=== PATIENT | male | born 1965 | race Caucasian/White ===

== ENCOUNTER 2016-08-07 22:02 | Emergency (ER) | payer OTHER ==
[2016-08-07 22:24] VITALS: RESP 18
[2016-08-07] MEDS ORDERED: SODIUM CHLORIDE 0.9% 1,000 ML IV STA ×2 (22:26→22:55)
--- NOTE | 2016-08-07 22:34 | ED ---
General Adult HPI - General Chief complaint: Syncope Stated complaint: Syncope Time Seen by Provider: 08/07/16 22:25 Source: patient, RN notes reviewed, old records reviewed Mode of arrival: ambulatory Limitations: no limitations - Related Data Home Medications Medication Instructions Recorded Confirmed Ibuprofen [Motrin] 200 - 400 mg PO Q6HR PRN 08/07/16 08/07/16 Allergies Allergy/AdvReac Type Severity Reaction Status Date / Time No Known Allergies Allergy Verified 08/07/16 22:41 Review of Systems ROS Statement: Those systems with pertinent positive or pertinent negative responses have been documented in the HPI. ROS Other: All systems not noted in ROS Statement are negative. Past Medical History Past Medical History: No Reported History History of Any Multi-Drug Resistant Organisms: None Reported Past Surgical History: Cholecystectomy Additional Past Surgical History / Comment(s): pilonital cyst Past Psychological History: No Psychological Hx Reported Smoking Status: Current every day smoker Past Alcohol Use History: Daily Past Drug Use History: None Reported General Exam Limitations: no limitations Course Vital Signs 08/07/16 08/07/16 22:17 23:43 Temperature 98.6 F Pulse Rate 95 78 Respiratory 18 18 Rate Blood Pressure 156/73 128/59 O2 Sat by Pulse 95 95 Oximetry - Reevaluation(s) Reevaluation #1: 08/08/16 00:43 Patient's without seizure-like activity or syncopal episode here in the emergency room, patient states he feels fine EKG Findings - EKG Comments: EKG Findings:: EKG shows normal sinus a rate of 90, OH 146, [id number], QTC 435 Medical Decision Making - Medical Decision Making 49 middle ear with no specific medical history coming in for evaluation of syncopal versus seizure like activity. Patient is without event in emergency room, feels fine. Mild elevated alcohol, does admit to being daily drinker. CT is negative. Patient will be discharged home - Lab Data Result diagrams: 08/07/16 23:04 08/07/16 23:04 Lab Results 08/07/16 08/07/16 08/07/16 Range/Units 23:04 23:04 23:04 WBC 8.3 (3.8-10.6) k/uL RBC 4.79 (4.30-5.90) m/uL Hgb 14.7 (13.0-17.5) gm/dL Hct 43.7 (39.0-53.0) % MCV 91.3 (80.0-100.0) fL MCH 30.7 (25.0-35.0) pg MCHC 33.6 (31.0-37.0) g/dL RDW 13.2 (11.5-15.5) % Plt Count 199 (150-450) k/uL Neutrophils % 56 % Lymphocytes % 29 % Monocytes % 7 % Eosinophils % 4 % Basophils % 1 % Neutrophils # 4.6 (1.3-7.7) k/uL Lymphocytes # 2.4 (1.0-4.8) k/uL Monocytes # 0.5 (0-1.0) k/uL Eosinophils # 0.3 (0-0.7) k/uL Basophils # 0.1 (0-0.2) k/uL PT (9.0-12.0) sec INR (<1.1) APTT (22.0-30.0) sec D-Dimer (<0.60) mg/L FEU Sodium 144 (137-145) mmol/L Potassium 3.5 (3.5-5.1) mmol/L Chloride 105 (98-107) mmol/L Carbon Dioxide 26 (22-30) mmol/L Anion Gap 13 mmol/L BUN 15 (9-20) mg/dL Creatinine 0.70 (0.66-1.25) mg/dL Est GFR (MDRD) Af Amer >60 (>60 ml/min/1.73 sqM) Est GFR (MDRD) Non-Af >60 (>60 ml/min/1.73 sqM) Glucose 81 (74-99) mg/dL Calcium 9.7 (8.4-10.2) mg/dL Phosphorus 3.3 (2.5-4.5) mg/dL Magnesium 1.7 (1.6-2.3) mg/dL Total Bilirubin 0.5 (0.2-1.3) mg/dL AST 52 (17-59) U/L ALT 70 (21-72) U/L Alkaline Phosphatase 74 (38-126) U/L Total Creatine Kinase 304 H (55-170) U/L CK-MB (CK-2) 3.1 H* (0.0-2.4) ng/mL CK-MB (CK-2) Rel Index 1.0 Troponin I <0.012 (0.000-0.034) ng/mL Total Protein 6.9 (6.3-8.2) g/dL Albumin 4.1 (3.5-5.0) g/dL Lipase 88 (23-300) U/L Salicylates <1.0 mg/dL Urine Opiates Screen (NotDetected) Ur Oxycodone Screen (NotDetected) Urine Methadone Screen (NotDetected) Ur Propoxyphene Screen (NotDetected) Acetaminophen <10.0 ug/mL Ur Barbiturates Screen (NotDetected) U Tricyclic Antidepress (NotDetected) Ur Phencyclidine Scrn (NotDetected) Ur Amphetamines Screen (NotDetected) U Methamphetamines Scrn (NotDetected) U Benzodiazepines Scrn (NotDetected) Urine Cocaine Screen (NotDetected) U Marijuana (THC) Screen (NotDetected) Serum Alcohol 16 mg/dL 08/07/16 08/07/16 Range/Units 23:04 23:15 WBC (3.8-10.6) k/uL RBC (4.30-5.90) m/uL Hgb (13.0-17.5) gm/dL Hct (39.0-53.0) % MCV (80.0-100.0) fL MCH (25.0-35.0) pg MCHC (31.0-37.0) g/dL RDW (11.5-15.5) % Plt Count (150-450) k/uL Neutrophils % % Lymphocytes % % Monocytes % % Eosinophils % % Basophils % % Neutrophils # (1.3-7.7) k/uL Lymphocytes # (1.0-4.8) k/uL Monocytes # (0-1.0) k/uL Eosinophils # (0-0.7) k/uL Basophils # (0-0.2) k/uL PT 10.0 (9.0-12.0) sec INR 1.0 (<1.1) APTT 23.2 (22.0-30.0) sec D-Dimer 0.20 (<0.60) mg/L FEU Sodium (137-145) mmol/L Potassium (3.5-5.1) mmol/L Chloride (98-107) mmol/L Carbon Dioxide (22-30) mmol/L Anion Gap mmol/L BUN (9-20) mg/dL Creatinine (0.66-1.25) mg/dL Est GFR (MDRD) Af Amer (>60 ml/min/1.73 sqM) Est GFR (MDRD) Non-Af (>60 ml/min/1.73 sqM) Glucose (74-99) mg/dL Calcium (8.4-10.2) mg/dL Phosphorus (2.5-4.5) mg/dL Magnesium (1.6-2.3) mg/dL Total Bilirubin (0.2-1.3) mg/dL AST (17-59) U/L ALT (21-72) U/L Alkaline Phosphatase (38-126) U/L Total Creatine Kinase (55-170) U/L CK-MB (CK-2) (0.0-2.4) ng/mL CK-MB (CK-2) Rel Index Troponin I (0.000-0.034) ng/mL Total Protein (6.3-8.2) g/dL Albumin (3.5-5.0) g/dL Lipase (23-300) U/L Salicylates mg/dL Urine Opiates Screen Not Detected (NotDetected) Ur Oxycodone Screen Not Detected (NotDetected) Urine Methadone Screen Not Detected (NotDetected) Ur Propoxyphene Screen Not Detected (NotDetected) Acetaminophen ug/mL Ur Barbiturates Screen Not Detected (NotDetected) U Tricyclic Antidepress Not Detected (NotDetected) Ur Phencyclidine Scrn Not Detected (NotDetected) Ur Amphetamines Screen Not Detected (NotDetected) U Methamphetamines Scrn Not Detected (NotDetected) U Benzodiazepines Scrn Not Detected (NotDetected) Urine Cocaine Screen Not Detected (NotDetected) U Marijuana (THC) Screen Not Detected (NotDetected) Serum Alcohol mg/dL - Radiology Data Radiology results: report reviewed (CT brain CT angios had neck is negative for acute disease), image reviewed Disposition Clinical Impression: Vasovagal syncope, Dehydration, Alcohol intoxication, New onset seizure Disposition: HOME SELF-CARE Condition: Good Instructions: Syncope (ED), New-Onset Seizure in Adults (ED) Referrals: None,Stated [Primary Care Provider] - 1-2 days
[2016-08-07] MEDS ORDERED: RX INFO: IV CONTRAST WAS GIVEN 1 EACH MISC MISCELLANE PRN (22:55)
[2016-08-07 23:17] LABS: Basophils # (A) 0.1 k/uL (0-0.2); Basophils % (A) 1 %; CH 31.2; CHCM 34.4; Eosinophils # (A) 0.3 k/uL (0-0.7); Eosinophils % (A) 4 %; HCT 43.7 % (39.0-53.0); HGB 14.7 gm/dL (13.0-17.5); Luc # (Auto) 0.27; Luc % (Auto) 3; Lymphocytes # (A) 2.4 k/uL (1.0-4.8); Lymphocytes % (A) 29 %; MCH 30.7 pg (25.0-35.0); MCHC 33.6 g/dL (31.0-37.0); MCV 91.3 fL (80.0-100.0); Mean Platelet Volume 7.2; Monocytes # (A) 0.5 k/uL (0-1.0); Monocytes % (A) 7 %; Neutrophils # (A) 4.6 k/uL (1.3-7.7); Neutrophils % (A) 56 %; RBC 4.79 m/uL (4.30-5.90); RDW 13.2 % (11.5-15.5); WBC 8.3 k/uL (3.8-10.6); WBC (Perox) 7.88
[2016-08-07 23:33] LABS: Glucose 81 mg/dL (74-99)
[2016-08-07 23:34] LABS: Partial Thromboplastin Time 23.2 sec (22.0-30.0)
[2016-08-07 23:35] LABS: ALT 70 U/L (21-72); AST 52 U/L (17-59); Acetaminophen <10.0 ug/mL; Alcohol 16 mg/dL; Alkaline Phosphatase 74 U/L (38-126); Anion Gap 13 mmol/L; Blood Urea Nitrogen 15 mg/dL (9-20); Calcium 9.7 mg/dL (8.4-10.2); Carbon Dioxide 26 mmol/L (22-30); Chloride 105 mmol/L (98-107); Magnesium 1.7 mg/dL (1.6-2.3); Non-African American GFR(MDRD) >60 (>60 ml/min/1.73 sqM); Phosphorous 3.3 mg/dL (2.5-4.5); Potassium 3.5 mmol/L (3.5-5.1); Salicylate <1.0 mg/dL; Sodium 144 mmol/L (137-145); Total Bilirubin 0.5 mg/dL (0.2-1.3); Total Protein 6.9 g/dL (6.3-8.2)
[2016-08-07 23:36] LABS: Creatine Kinase 304 U/L (55-170)
[2016-08-07 23:49] LABS: Troponin I <0.012 ng/mL (0.000-0.034)
--- NOTE | 2016-08-07 23:51 | CT ---
EXAMINATION TYPE: CT brain wo con DATE OF EXAM: 08/07/2016 11:45 PM COMPARISON: NONE HISTORY: No prior, near syncope, pt states he had an episode of "feeling funny" where sounds were muf fled CT DLP: DLP:head-1133.30 body-404.60 mGycm Automated exposure control for dose reduction was used. FINDINGS: Ventricles and sulci appear normal. There is no mass effect nor midline shift. There is no sign of in tracranial hemorrhage. I see no cerebral edema. There is moderate mucosal thickening in the ethmoid a nd left maxillary sinus. Calvarium is intact. IMPRESSION: Sinusitis. Otherwise negative CT scan of the brain.
--- NOTE | 2016-08-07 23:54 | CT ---
EXAMINATION TYPE: CT angio head neck DATE OF EXAM: 08/07/2016 11:45 PM COMPARISON: NONE HISTORY: No prior, near syncope, pt states he had an episode of "feeling funny" where sounds were muf fled CT DLP: DLP:head-1133.30 body-404.60 mGycm Automated exposure control for dose reduction was used. TECHNIQUE: Performed with IV Contrast, patient injected with 65 mL of Omnipaque 350. There are 3-D post processed images.. FINDINGS: There is normal branching pattern of the great vessels on the aortic arch. There is bilateral patency of the vertebral arteries. There is bilateral patency of the common internal and external carotid ar teries. There is no evidence of dissection. There is patency of the vertebrobasilar artery system. There is arterial flow in the anterior middle and posterior cerebral arteries. I see no evidence of aneurysm or neovascularity. I see no pathologic enhancement. IMPRESSION: NEGATIVE CT ANGIOGRAM OF THE NECK. NEGATIVE CT ANGIOGRAM OF THE BRAIN.
[2016-08-08 00:12] LABS: Creatine Kinase MB 3.1 ng/mL (0.0-2.4)
[2016-08-08 00:55] VITALS: BP 130/58; PULSE 74; TEMP 98
== END 2016-08-08 00:54 | disposition home or self-care (01) ==
LOC: EC 22:02
DX: R56.9 Unspecified convulsions (principal); R55 Syncope and collapse; E86.0 Dehydration; F10.120 Alcohol abuse with intoxication, uncomplicated; F17.200 Nicotine dependence, unspecified, uncomplicated; Y90.0 Blood alcohol level of less than 20 mg/100 ml
CPT/HCPCS: 99285 ×2; 96360 ×2; 96361 ×2; 36415; 93005; 85379; 80053; 82550; 82553; 83690; 83735; 84100; 84484; 85025; 85610; 85730; 80306; 83520 ×2; 80320; 70496; 70450; 70498; Q9967

== ENCOUNTER 2022-05-06 08:06 | Day surgery (SDC) | payer BC, OTHER ==
[2022-05-01 12:06] VITALS: BMI 32.5
[~2022-05-06 08:06] MED LIST: LACTATED RINGERS 1,000 ML IV SCH; LIDOCAINE 1% (10MG/ML) FOR IV START INTRADERMA PRN; ONDANSETRON 4 MG/2 ML VIAL IVP PRN
[2022-05-06 08:34] VITALS: TEMP 97.9
--- NOTE | 2022-05-06 08:39 | P.GSHP ---
History of Present Illness H&P Date: 05/06/22 CHIEF COMPLAINT: Colon screen HISTORY OF PRESENT ILLNESS: The patient is a 57-year-old male who presents for colon screen. Lower endoscopy was offered for further evaluation and management. PAST MEDICAL HISTORY: Please see list. PAST SURGICAL HISTORY: Please see list. MEDICATIONS: Please see list. ALLERGIES: Please see list. SOCIAL HISTORY: No illicit drug use FAMILY HISTORY: No reports of Crohn disease or ulcerative colitis. REVIEW OF ORGAN SYSTEMS: CONSTITUTIONAL: No reports of fevers or chills. PHYSICAL EXAM: VITAL SIGNS: Stable GENERAL: Well-developed pleasant in no acute distress. HEENT: No scleral icterus. Extraocular movements grossly intact. Moist buccal mucosa. NECK: Supple without lymphadenopathy. CHEST: Unlabored respirations. Equal bilateral excursions. CARDIOVASCULAR: Regular rate and rhythm. Distal 2+ pulses. ABDOMEN: Soft, nontender, nondistended. MUSCULOSKELETAL: No clubbing, cyanosis, or edema. ASSESSMENT: 1. Colon screen. PLAN: 1. Recommend proceeding with a lower endoscopy Past Medical History Past Medical History: GERD/Reflux, Hyperlipidemia, Hypertension, Sleep Apnea/CPAP/BIPAP Additional Past Medical History / Comment(s): Borderline Diabetic. Does not use CPAP. History of Any Multi-Drug Resistant Organisms: None Reported Past Surgical History: Cholecystectomy Additional Past Surgical History / Comment(s): Pilonidal cyst removed. Past Anesthesia/Blood Transfusion Reactions: No Reported Reaction Past Psychological History: No Psychological Hx Reported Smoking Status: Former smoker, Vaper Past Alcohol Use History: Daily Additional Past Alcohol Use History / Comment(s): Quit smoking 1 yr ago, smoked for 30 yrs, 1 ppd. No alcohol in 4.5 yrs. Past Drug Use History: None Reported - Past Family History Father Family Medical History: COPD Medications and Allergies Home Medications Medication Instructions Recorded Confirmed Type Atorvastatin [Lipitor] 20 mg PO DAILY 05/01/22 05/06/22 History Bisacodyl (Unknown Dose) 1 tab PO DAILY 05/01/22 05/06/22 History Omeprazole [PriLOSEC] 10 mg PO DAILY 05/01/22 05/06/22 History lisinopriL 30 mg PO QAM 05/01/22 05/06/22 History Allergies Allergy/AdvReac Type Severity Reaction Status Date / Time No Known Allergies Allergy Verified 05/06/22 08:34 Surgical - Exam Vital Signs Temp Pulse Resp BP Pulse Ox 97.9 F 77 18 170/82 97 05/06/22 08:33 05/06/22 08:33 05/06/22 08:33 05/06/22 08:33 05/06/22 08:33
[2022-05-06] MEDS ORDERED: GLYCOPYRROLATE 0.2 MG/ML 2 ML VIAL ONE (09:12)
[2022-05-06] MEDS ORDERED: PROPOFOL 10 MG/ML 20 ML VIAL IV ONE (09:12)
[2022-05-06 10:13] VITALS: BP 129/76; PULSE 70; RESP 16
--- NOTE | 2022-05-06 10:49 | P.PCN ---
Date of Procedure: 05/06/22 Description of Procedure: PREOPERATIVE DIAGNOSIS: Colonoscopy screening, first Family history colon polyps POSTOPERATIVE DIAGNOSIS: Tubular adenoma descending colon Tubular adenoma transverse colon Sigmoid diverticulosis Internal hemorrhoids, grade 2 OPERATION: Colonoscopy to the ileocecal valve and appendiceal orifice, cecum Colonoscopy with hot snare polypectomy Colonoscopy with cold forceps biopsy SURGEON: Marsha Woodall MD. ANESTHESIA: MAC. INDICATIONS: The patient is an 57-year-old male who family history of colon polyps in first colonoscopy. Benefits and risks were described and informed consent was obtained. DESCRIPTION OF PROCEDURE: The patient had undergone Sutab prep. The patient had been brought into the operating room and laid in the left lateral decubitus position. After adequate intravenous sedation, the rectum was examined with 2% lidocaine jelly. The prostate was unremarkable. External hemorrhoids were encountered. The rectal tone was within normal limits. No lesions were palpated in the rectal vault. An Olympus colonoscope was advanced until the cecum, ileocecal valve and appendiceal orifice were clearly viewed. The prep was fair. Sigmoid diverticulosis was encountered. Colonic polyps were found and removed. No evidence of focal colitis was found. Retroflexion of the scope demonstrated grade 2 internal hemorrhoids without active bleeding or inflammation. The colon was desufflated. The patient had tolerated the procedure well. Withdrawal time was over 6 minutes. FINDINGS: Aronchick preparation quality scale 3 (1-5) Internal hemorrhoids, grade 2 External hemorrhoids, grade 2. No arteriovenous malformations. Sigmoid diverticulosis Removal of 3 polyps: - Snare polypectomy 60 cm from the anal verge, 5 mm tubulovillous adenoma polyp, descending colon - Snare polypectomy at transverse colon, 8 mm flat villous adenoma polyp. - Snare polypectomy of descending colon, 6 mm flat villous adenoma polyp. No focal colitis. RECOMMENDATIONS: Given severity of tubular adenomas, recommend repeat colonoscopy 3 years, 2025 Plan - Discharge Summary Discharge Rx Participant: No New Discharge Prescriptions: Continue lisinopriL 30 mg PO QAM Bisacodyl (Unknown Dose) 1 tab PO DAILY Atorvastatin [Lipitor] 20 mg PO DAILY Omeprazole [PriLOSEC] 10 mg PO DAILY Discharge Medication List Atorvastatin [Lipitor] 20 mg PO DAILY 05/01/22 [History] Bisacodyl (Unknown Dose) 1 tab PO DAILY 05/01/22 [History] Omeprazole [PriLOSEC] 10 mg PO DAILY 05/01/22 [History] lisinopriL 30 mg PO QAM 05/01/22 [History] Follow up Appointment(s)/Referral(s): Marsha Woodall MD [STAFF PHYSICIAN] - 1 Week Patient Instructions/Handouts: *Surgery [facility] - (Anesthesia) Endoscopy Discharge Instructions, Diverticulosis (DC), Colorectal Polyps (GEN), Diverticulosis Diet (GEN), Colonoscopy (DC) Activity/Diet/Wound Care/Special Instructions: Repeat colonoscopy 3 years, 2025 Discharge Disposition: HOME SELF-CARE
== END 2022-05-06 10:59 | disposition home or self-care (01) ==
LOC: ORWHC2ENDO 08:06
PROVIDERS: ATTEND Surgery Plastic and Reconstructive Surgery
DX: Z12.11 Encounter for screening for malignant neoplasm of colon (principal); D12.4 Benign neoplasm of descending colon; D12.3 Benign neoplasm of transverse colon; K57.30 Diverticulosis of large intestine without perforation or abscess without bleeding; K64.1 Second degree hemorrhoids; K21.9 Gastro-esophageal reflux disease without esophagitis; I10 Essential (primary) hypertension; E78.5 Hyperlipidemia, unspecified; G47.30 Sleep apnea, unspecified; Z83.71 Family history of colonic polyps; Z90.49 Acquired absence of other specified parts of digestive tract; Z87.891 Personal history of nicotine dependence; Z86.59 Personal history of other mental and behavioral disorders; Z83.6 Family history of other diseases of the respiratory system; Z79.899 Other long term (current) drug therapy
CPT/HCPCS: 45380; 88305; 45385; J2704